=== PATIENT | male | born 1960 | race Caucasian/White ===

== ENCOUNTER → 2017-01-22 | Outpatient (CLI) | payer MEDICARE ==
[~2017-01-22] MED LIST: CETIRIZINE HCL10 M1 PO; CORDARONE 200M200 MG PO; FLUOXETINE HCL40 MG PO; INVOKANA300 MG PO; LASIX 40 MG TAB40 MG PO; LEVOTHYROXINE25 MCG PO; LISINOPRIL5 MG PO; LORTAB 5-325 M1 EACH PO; METFORMIN HCL1000 MG PO; NEURONTIN 300300 MG PO; PROTONIX 40 MG40 M1 PO; ROPINIROLE HCL2 MG PO; SIMVASTATIN40 MG PO; XARELTO20 MG PO
== END ==
LOC: HEART 5 12:08
DX: R06.02 Shortness of breath (principal); I48.91 Unspecified atrial fibrillation; Z79.899 Other long term (current) drug therapy; F17.210 Nicotine dependence, cigarettes, uncomplicated; R94.2 Abnormal results of pulmonary function studies
CPT/HCPCS: 94060; 94729

== ENCOUNTER 2021-01-05 12:38 | Emergency (ER) | payer MEDICARE, OTHER ==
[~2021-01-05 12:38] MED LIST changes: +BUPROPION XL300 MG PO; +FIORINAL 50-321 EACH PO; +FUROSEMIDE40 MG PO; +NORCO 10-325 T1 EACH PO; +PROTONIX40 MG PO; +RANEXA500 MG PO; +SIMVASTATIN10 MG PO; +SYNTHROID25 MCG PO
[2021-01-05 13:25] LABS: HEMOGLOBIN 13.7 gm/dl (14.0-17.5); RED BLOOD COUNT 4.43 M/UL (4.20-5.50); WHITE BLOOD COUNT 4.8 K/UL (4.5-11.0)
[2021-01-05 13:40] LABS: BUN/CREATININE RATIO 15 (0-10)
== END 2021-01-05 19:15 | disposition short-term general hospital (02) ==
LOC: ER1 12:38
PROVIDERS: Nurse Practitioner
DX: I48.91 Unspecified atrial fibrillation (principal); J44.9 Chronic obstructive pulmonary disease, unspecified; I10 Essential (primary) hypertension; E78.5 Hyperlipidemia, unspecified; Z87.891 Personal history of nicotine dependence; Z90.89 Acquired absence of other organs; Z79.899 Other long term (current) drug therapy
CPT/HCPCS: 71045; 80053; 82550; 82553; 83735; 83874; 84439; 84443; 84484; 85025; 85610; 93005; 99285

== ENCOUNTER 2021-09-23 18:00 | Emergency (ER) | payer MEDICARE ==
[2021-09-23 20:13] LABS: HEMOGLOBIN 10.9 gm/dl (14.0-17.5)
[2021-09-23] MEDS ORDERED: CLINDAMYCIN HC150 MG PO (21:50)
== END 2021-09-23 21:55 | disposition home or self-care (01) ==
LOC: ER1 18:00
PROVIDERS: Physician Assistant
DX: K06.8 Other specified disorders of gingiva and edentulous alveolar ridge (principal); K05.10 Chronic gingivitis, plaque induced; I48.91 Unspecified atrial fibrillation
CPT/HCPCS: 85014; 85018; 85610; 85730; 99283

== ENCOUNTER 2022-04-24 18:41 | Emergency (ER) | payer MEDICARE ==
[~2022-04-24 18:41] MED LIST changes: +CLINDAMYCIN HC150 MG PO
[2022-04-24 20:32] LABS: HEMOGLOBIN 13.2 gm/dl (14.0-17.5); RED BLOOD COUNT 4.51 M/UL (4.20-5.50); WHITE BLOOD COUNT 12.3 K/UL (4.5-11.0)
[2022-04-24 21:11] LABS: BUN/CREATININE RATIO 13 (0-10)
[2022-04-25] MEDS ORDERED: OMNICEF 300 MG300 MG PO (00:44)
== END 2022-04-25 00:55 | disposition home or self-care (01) ==
LOC: ER1 18:41
PROVIDERS: Physician Assistant
DX: R50.9 Fever, unspecified (principal); L53.9 Erythematous condition, unspecified; I48.91 Unspecified atrial fibrillation; Z85.01 Personal history of malignant neoplasm of esophagus; Z98.84 Bariatric surgery status; Z20.822 Contact with and (suspected) exposure to COVID-19
CPT/HCPCS: 0240U; 71045; 80053; 82550; 82553; 84484; 85025; 87040; 93005; 99284